=== PATIENT | female | born 1970 | race Caucasian/White ===

== ENCOUNTER → 2016-09-07 | Day surgery (SDC) | payer OTHER ==
[~2016-09-07] MED LIST: BLOOD PRESSURE; BUPR150T8 PO; FENTANYL PF 100 MCG/2 ML VIAL. IV PRN; IV RINGERS,LACTATED 1000ML 1,000 ML IV SCH; LEVO50TA5 PO; LIDOCAINE 1% 1 ML SYRINGE. ID PRN; LIDOCAINE 2% PF Vial for OR 5 ML VIAL. ONE; MIDAZOLAM HCL 2 MG/2 ML VIAL. IV PRN; PROPOFOL 40 ML IV ONE; SERT50TA PO; TRAZ150T55 PO
[2016-09-07 08:37] LABS: NEG OBC UR NEG; POS OBC UR POS
[2016-09-07 10:26] VITALS: BP 140/75
--- NOTE | 2016-09-10 13:24 | PATHOLOGY ---
PATHOLOGY REPORT * * * * * * * * FINAL DIAGNOSIS: A. Esophageal biopsies, distal esophagus: - Segments of hyperplastic squamous esophageal mucosa consistent with reflux esophagitis. B. Random colon biopsy: - No significant pathologic abnormalities. COMMENT: Sections of the distal esophageal biopsy reveal segments of tangentially oriented hyperplastic squamous esophageal mucosa. The findings are consistent with reflux esophagitis. There is no evidence of Saucedo's change, dysplasia or malignancy. Sections of the random colon biopsy reveal multiple segments of colonic mucosa containing several mucosal-associated lymphoid aggregates. There is no evidence of a chronic destructive colitis, lymphocytic colitis, or collagenous colitis. (JPM:csd; d/t: 09/10/2016) REPORT ELECTRONICALLY SIGNED BY: Kavon Mckeon M.D. DATE/TIME: 09/10/2016 13:23 * * * * * * * * GROSS PATHOLOGY: A. Received in formalin labeled "Charlene Borja, distal esophageal biopsy, R/O Saucedo's," are five segments of sykes soft tissue measuring 1.0 x 0.9 x 0.1 cm in aggregate dimensions and ranging from 0.3 to 0.5 cm in maximum dimension. The specimen is submitted entirely in cassette A1. B. Received in formalin labeled "Charlene Borja, random colon biopsy, R/O microscopic colitis," are multiple (greater than 10) segments of sykes soft tissue measuring 1.8 x 1.6 x 0.2 cm in aggregate dimensions and ranging from 0.2 to 0.8 cm in maximum dimension. The specimen is submitted entirely in cassette B1. (CAA; 09/07/2016) INITIAL CPT CODE(S): A; 07290 B; 09828 Professional services performed by [facility] at [address] [address] Technical services performed by [facility] at [address] [place] [address], [address], [place] [address]. SPECIMEN(S) RECEIVED: A.Distal esophageal biopsy B.Random colon biopsy CLINICAL HISTORY: GERD, diarrhea A. R/O Saucedo's B. R/O microscopic colitis PATIENT: CHARLENE BORJA /AGE: 107/08/1970 (Age: 46) PATIENT #: [id number] ALT CASE #: SPECIMEN COLLECTION DATE: 09/07/2016 SPECIMEN RECEIVED DATE: 09/07/2016 [facility] - [id number] [address] - PHONE: [phone] * * * END OF REPORT * * *
== END | disposition home or self-care (01) ==
LOC: ENDOS 08:03
PROVIDERS: ATTEND Internal Medicine Gastroenterology
DX: K64.0 First degree hemorrhoids (principal); K21.0 Gastro-esophageal reflux disease with esophagitis; I10 Essential (primary) hypertension; F41.9 Anxiety disorder, unspecified; F32.9 Major depressive disorder, single episode, unspecified; Z72.89 Other problems related to lifestyle; E03.9 Hypothyroidism, unspecified; Z87.442 Personal history of urinary calculi
CPT/HCPCS: 43239; 45380; 81025; J2704

== ENCOUNTER → 2016-09-21 | Outpatient (CLI) | payer OTHER ==
[2016-09-07 10:26] VITALS: BP 140/75
[~2016-09-21] MED LIST changes: +BARIUM SULFATE 60% 355 ML SUSP PO ONE; -FENTANYL PF 100 MCG/2 ML VIAL. IV PRN; -IV RINGERS,LACTATED 1000ML 1,000 ML IV SCH; -LIDOCAINE 1% 1 ML SYRINGE. ID PRN; -LIDOCAINE 2% PF Vial for OR 5 ML VIAL. ONE; -MIDAZOLAM HCL 2 MG/2 ML VIAL. IV PRN; -PROPOFOL 40 ML IV ONE
--- NOTE | 2016-09-21 14:33 | RAD ---
Indication abdominal pain with rectal bleeding. A gestational small bowel series pulmonary films of the abdomen were obtained which appeared unremarkable. Contrast was administered orally and followed through the small bowel to the large bowel. Transit to the large bowel is relatively rapid and contrast was seen in the large bowel at 20 minutes. Ileal and jejunal loops appeared unremarkable. No mass was seen. 2 spot fluoroscopic images were obtained associated with the exam. The terminal ileum appeared normal. Fluoroscopy time associated with the imaging was 30 seconds. IMPRESSION: Relatively rapid transit to the large bowel. The small bowel series was otherwise unremarkable.
== END | disposition home or self-care (01) ==
LOC: RAD 07:34
PROVIDERS: ATTEND Internal Medicine Gastroenterology
DX: R10.9 Unspecified abdominal pain (principal); K62.5 Hemorrhage of anus and rectum; D64.9 Anemia, unspecified
CPT/HCPCS: 74250